=== PATIENT | male | born 1960 | race African-American/Black ===

== ENCOUNTER 2020-03-09 16:24 | Emergency (ER) | payer OTHER ==
[~2020-03-09] VITALS: Ht 180.3 cm; Wt 75.0 kg
[~2020-03-09 16:24] MED LIST: AMOXIL500 M1 OR; COGENTIN1 MG OR; DOXYCYC MONO100 M1 OR; HYDROCHLOROT12.5 MG OR; LORTAB5 PO; NAPROSYN500 MG PO; SEROQUEL25 MG OR; TOPROL XL25 MG OR; VENTOLIN HFA IN
[2020-03-09 17:42] LABS: HEMATOCRIT 35.4 % (39.0-50.0); HEMOGLOBIN 11.7 g/dl (14.0-18.0); IMMATURE GRANULOCYTES 0.4 % (0.0-5.0); MEAN CELL VOLUME 96.2 fL CALC (80.0-100.0); MEAN CORPUSCULAR HGB 31.8 pG CALC (26.0-32.0); MEAN CORPUSCULAR HGB CONC 33.1 g/dL CAL (32.0-36.0); NEUT# 3.16 thou/uL (1.82-7.42); RED BLOOD COUNT 3.68 mill/uL (4.70-6.10); RED CELL DISTRI WIDTH 13.5 % (11.5-15.5)
[2020-03-09 18:14] LABS: ALBUMIN 3.7 g/dL (3.2-5.0); ALKALINE PHOSPHATASE 89 u/l (38-126); ANION GAP 7 (6-22 (CALC)); BILIRUBIN, TOTAL 0.6 mg/dL (0.0-1.4); BUN 8 mg/dL (8-23); BUN/CREATININE RATIO 11 (12-20 (CALC)); CARBON DIOXIDE 35 mmol/l (22-30); CHLORIDE 86 mmol/l (95-108); CREATININE 0.7 mg/dL (0.7-1.3); GFR > 60 ML/MIN (>=60 (CALC)); GFR FOR AFR.AMER. > 60 ML/MIN (>=60 (CALC)); POTASSIUM 3.6 mmol/l (3.5-5.1); SGOT/AST 59 u/l (19-48); SODIUM 124 mmol/l (137-146)
[2020-03-09 18:39] LABS: URINE BILIRUBIN - DIPSTICK NEGATIVE (NEGATIVE); URINE BLOOD DIPSTICK NEGATIVE (NEGATIVE); URINE COLOR YELLOW; URINE GLUCOSE - DIPSTICK NEGATIVE (NEGATIVE); URINE KETONE NEGATIVE (NEGATIVE); URINE LEUK ESTERASE NEGATIVE (NEGATIVE); URINE NITRITE - DIPSTICK NEGATIVE (Negative); URINE PROTEIN - DIPSTICK NEGATIVE (NEG-TRACE); URINE SPECIFIC GRAVITY 1.025
[2020-03-09] MEDS ORDERED: AZITHROMYCIN500 MG PO (19:21)
[2020-03-09] MEDS ORDERED: KEFLEX500 M1 PO (19:21)
[2020-03-09] MEDS ORDERED: PREDNISONE20 MG PO (19:25)
[2020-03-09 19:36] VITALS: BP 134/82
--- NOTE | 2020-03-11 07:42 | NUR ---
RESULTS CALLED TO , PRELIMINARY BLOOD CULTURE SHOWS 3/4 VIALS GROWING GRAM (+) COCCI. PT LEFT AMA. HIS PHONE NUMBER ON FILE IS A FRIENDS PHONE, THE FRIEND REPORTS HIS NIMBER IS [phone] OR [phone]. LEFT MESSAGE ON [phone].
== END 2020-03-09 19:31 | disposition left against medical advice (07) ==
LOC: ED 16:24
DX: J44.1 Chronic obstructive pulmonary disease with (acute) exacerbation (principal); E87.1 Hypo-osmolality and hyponatremia; E87.2 Acidosis; F14.10 Cocaine abuse, uncomplicated; I10 Essential (primary) hypertension; F17.210 Nicotine dependence, cigarettes, uncomplicated; Z91.19 Patient's noncompliance with other medical treatment and regimen; Z20.828 Contact with and (suspected) exposure to other viral communicable diseases

== ENCOUNTER 2020-05-28 08:44 | Emergency (ER) | payer OTHER ==
[~2020-05-28] VITALS: Ht 180.3 cm; Wt 75.0 kg
[~2020-05-28 08:44] MED LIST changes: +AZITHROMYCIN500 MG PO; +KEFLEX500 M1 PO; +PREDNISONE20 MG PO
[2020-05-28 09:17] LABS: IMMATURE GRANULOCYTES 0.4 % (0.0-5.0); MEAN CORPUSCULAR HGB 31.1 pG CALC (26.0-32.0); MEAN CORPUSCULAR HGB CONC 32.1 g/dL CAL (32.0-36.0); NEUT# 6.19 thou/uL (1.82-7.42); RED BLOOD COUNT 4.66 mill/uL (4.70-6.10)
[2020-05-28 09:18] LABS: HEMATOCRIT 45.2 % (39.0-50.0); HEMOGLOBIN 14.5 g/dl (14.0-18.0)
[2020-05-28 09:20] LABS: ALBUMIN 4.4 g/dL (3.2-5.0); BILIRUBIN, TOTAL 0.6 mg/dL (0.0-1.4); BUN 5 mg/dL (8-23); BUN/CREATININE RATIO 6 (12-20 (CALC)); C-REACTIVE PROTEIN 1.1 mg/dL (0-0.9); CARBON DIOXIDE 31 mmol/l (22-30); CHLORIDE 84 mmol/l (95-108); CREATININE 0.9 mg/dL (0.7-1.3); GFR > 60 ML/MIN (>=60 (CALC)); GFR FOR AFR.AMER. > 60 ML/MIN (>=60 (CALC)); LIPASE < 10 u/l (23-300); SGOT/AST 62 u/l (19-48); SODIUM 125 mmol/l (137-146); TOTAL PROTEIN 7.7 g/dL (6.3-8.2)
[2020-05-28 09:24] LABS: ALKALINE PHOSPHATASE 142 u/l (38-126); ANION GAP 14 (6-22 (CALC)); POTASSIUM 4.4 mmol/l (3.5-5.1)
[2020-05-28 09:49] LABS: ACT PARTIAL THROMBO TIME 26.5 SECONDS (20.0-32.5)
[2020-05-28 13:43] LABS: URINE BILIRUBIN - DIPSTICK NEGATIVE (NEGATIVE); URINE BLOOD DIPSTICK NEGATIVE (NEGATIVE); URINE COLOR YELLOW; URINE GLUCOSE - DIPSTICK NEGATIVE (NEGATIVE); URINE KETONE NEGATIVE (NEGATIVE); URINE LEUK ESTERASE NEGATIVE (NEGATIVE); URINE NITRITE - DIPSTICK NEGATIVE (Negative); URINE PROTEIN - DIPSTICK NEGATIVE (NEG-TRACE); URINE UROBILINOGEN - DIPSTICK 0.2 E.U./dL (0.2)
[2020-05-28 14:00] VITALS: BP 167/101
== END 2020-05-28 14:00 | disposition short-term general hospital (02) ==
LOC: ED 08:44
PROVIDERS: Family Medicine
DX: I21.4 Non-ST elevation (NSTEMI) myocardial infarction (principal); J44.1 Chronic obstructive pulmonary disease with (acute) exacerbation; I11.0 Hypertensive heart disease with heart failure; I50.9 Heart failure, unspecified; F17.200 Nicotine dependence, unspecified, uncomplicated; I25.2 Old myocardial infarction; Z20.822 Contact with and (suspected) exposure to COVID-19
CPT/HCPCS: J1644; Q9967

== ENCOUNTER 2020-06-08 15:15 | Inpatient (IN) | payer OTHER ==
[2020-06-08] VITALS (12 sets, daily range): BP systolic 83–176; BP diastolic 54–93
[~2020-06-08] VITALS: Ht 180.3 cm; Wt 70.0 kg
--- NOTE | 2020-06-08 15:15 | NUR ---
PATIENT ARRIVED IN SEVERE RESPIRATORY DISTRESS BREATHING AT 48 RESPIRATIONS PER MINUTE. MD AT BEDSIDE FOR EVAL RESPIRATORY THERAPY AND PHARMACY CALLED TO BEDSIDE FOR ASSISTANCE. MD VERBAL ORDERS RECIEVED PATIENT BEING PREPARED FOR INTUBATION.
[2020-06-08 15:58] LABS: GFR > 60 ML/MIN (>=60 (CALC)); GFR FOR AFR.AMER. > 60 ML/MIN (>=60 (CALC))
--- NOTE | 2020-06-08 16:00 | NUR ---
Reassessment of patient completed. No distress noted. ON VENT SEDATED
[2020-06-08 16:04] LABS: IMMATURE GRANULOCYTES 0.6 % (0.0-5.0); MEAN CELL VOLUME 97.9 fL CALC (80.0-100.0); MEAN CORPUSCULAR HGB 30.5 pG CALC (26.0-32.0); MEAN CORPUSCULAR HGB CONC 31.1 g/dL CAL (32.0-36.0); NEUT# 2.33 thou/uL (1.82-7.42); RED BLOOD COUNT 3.87 mill/uL (4.70-6.10); RED CELL DISTRI WIDTH 12.7 % (11.5-15.5)
[2020-06-08 16:07] LABS: HEMATOCRIT 37.9 % (39.0-50.0); HEMOGLOBIN 11.8 g/dl (14.0-18.0)
[2020-06-08 16:10] LABS: INTERNATIONAL NORMALIZED RATIO 1.1 RATIO (0.7-1.3)
[2020-06-08 16:11] LABS: ALBUMIN 4.5 g/dL (3.2-5.0); ALKALINE PHOSPHATASE 92 u/l (38-126); ANION GAP 12 (6-22 (CALC)); BILIRUBIN, TOTAL 0.4 mg/dL (0.0-1.4); BUN 14 mg/dL (8-23); BUN/CREATININE RATIO 14 (12-20 (CALC)); CARBON DIOXIDE 31 mmol/l (22-30); CHLORIDE 85 mmol/l (95-108); GFR > 60 ML/MIN (>=60 (CALC)); GFR FOR AFR.AMER. > 60 ML/MIN (>=60 (CALC)); POTASSIUM 4.8 mmol/l (3.5-5.1); SGOT/AST 41 u/l (19-48); SODIUM 124 mmol/l (137-146)
[2020-06-08 16:22] LABS: MYOGLOBIN 61 ng/mL (0 - 121)
--- NOTE | 2020-06-08 17:36 | NUR ---
Reassessment of patient completed. No distress noted.
--- NOTE | 2020-06-08 18:12 | NUR ---
Reassessment of patient completed. No distress noted.ON VENT SEDATED
[2020-06-08 18:13] LABS: URINE BILIRUBIN - DIPSTICK NEGATIVE (NEGATIVE); URINE BLOOD DIPSTICK NEGATIVE (NEGATIVE); URINE COLOR YELLOW; URINE GLUCOSE - DIPSTICK NEGATIVE (NEGATIVE); URINE KETONE NEGATIVE (NEGATIVE); URINE LEUK ESTERASE NEGATIVE (NEGATIVE); URINE NITRITE - DIPSTICK NEGATIVE (Negative); URINE PROTEIN - DIPSTICK 100 mg/dL (NEG-TRACE); URINE SPECIFIC GRAVITY >=1.030; URINE UROBILINOGEN - DIPSTICK 0.2 E.U./dL (0.2)
[2020-06-08 18:18] LABS: URINE RBC 0-2 RBC/hpf (0-5); URINE WBC 0-2 WBC/hpf (0-5)
--- NOTE | 2020-06-08 19:40 | NUR ---
Reassessment of patient completed. No distress noted.ON VENT SEDATED
--- NOTE | 2020-06-08 20:05 | NUR ---
REPORT GIVEN TO ICU FACE TO FACE
--- NOTE | 2020-06-08 20:25 | NUR ---
Reassessment of patient completed. No distress noted.SEDATED ON VENT
--- NOTE | 2020-06-08 21:00 | NUR ---
RECEIVED FROM ER VIA STRETCHER INTO ICU 1. TRANSPORTED BY DROP MAN AND RT. PATIENT ORALLY INTUABTED BEING BAGGED DURING TRANSPORT. TRANSFERRED TO BED WITH 4 PERSON ASSIST. PLACED ON VENT BY RT-TV 470, A/C 20, FIO2 40%, PEEP 6. O2 SAT 90'S. PATIENT SOMEWHAT RESTLESS ON ARRIVAL AND AFTER TRANSFER FROM STRETCHER TO BED. RECEIVED PATIENT ON PROPOFOL AT 40 MCG/KG/MIN INCREASED TO 45 MCG/KG/MIN FOR RESTLESSNESS. WILL CONTINUE TO MONITOR CLOSELY.
--- NOTE | 2020-06-08 21:15 | NUR ---
STILL SOMEWHAT RESTLESS. PROPOFOL INCREASED TO 50 MCG/KG/MIN.
--- NOTE | 2020-06-08 21:30 | NUR ---
PATIENT RESTING QUIETLY AT THIS TIME. BREATH SOUNDS DIMINISHED THROUGHOUT LUNG KELLEY. SUX ORALLY FOR LARGE AMOUNT OF THICK CLEAR SECRETIONS. OG TUBE IN PLACE DRAINING SMALL AMOUNT UNDIGESTED FOOD TO PALE GREEN. ABD SOFT WITH BOWEL SOUNDS HEARD. ANDERSON DRAINS CLEAR YELLOW URINE, DIURESING WELL FROM LASIX GIVEN IN ER. 3-4+ PITTING EDEMA OF BLE. PERIPHERAL PULSES INATCT.SALINE LOCK IN PLACE IN RH AND LAC, BOTH SITES BENIGN. RIGHT FEMORAL TLC IN PLACE WITH NS STARTED AT 100 ML/HR AND PROPOFOL AT 50 MCG/KG/MIN WITH ADEQUATE SEDATION. CARDIA MONITOR SHOWS SR. BLOOD DRAWN FROM TLC FOR TROPONIN LEVEL- FLUSHED PRE AND POST BLOOD DRAW PER PROTOCOL.
--- NOTE | 2020-06-08 22:09 | NUR ---
LAB PHONED WITH TROPONIN RESULTS OF .229.
--- NOTE | 2020-06-08 22:10 | NUR ---
PATIENT DAUGHTER NAHUN PHONED IN FOR CONDITION UPDATE AND LEFT HER CONTACT NUMBERS.
--- NOTE | 2020-06-08 22:30 | NUR ---
INFORMED DR RANKIN OF ELEVATED TROPONIN RESULTS. NEW ORDERS RECEIVED.
--- NOTE | 2020-06-08 23:00 | NUR ---
PROPOFOL CURRENTLY AT 30 MCG/KG/MIN. PATIENT CALM AND RESTFUL. VSS. SR ON MONITOR.
[2020-06-09] VITALS (15 sets, daily range): BP systolic 96–120; BP diastolic 65–81
--- NOTE | 2020-06-09 | NUR ---
VSS. VENT SETTINGS UNCHANGED FROM EARLIER. O2 SAT 99% SR ON MONITOR.
--- NOTE | 2020-06-09 02:00 | NUR ---
VSS. SEDATED ON PROPOFOL AT 30 MCG/KG/MIN. SR ON MONITOR.
--- NOTE | 2020-06-09 04:00 | NUR ---
VSS. CALM AND RESTFUL. SR ON MONITOR.
--- NOTE | 2020-06-09 04:30 | NUR ---
BATHED AND PARTIAL LINEN CHANGE DONE. PATIENT RESTLESS AT TIMES DURING BATHING AND REPOSITIONING. CALMS TO VERBAL CUES. VSS. SR ON MONITOR.
--- NOTE | 2020-06-09 05:15 | NUR ---
ABGS DRAWN PER RT.
[2020-06-09 05:42] LABS: HEMATOCRIT 32.6 % (39.0-50.0); HEMOGLOBIN 10.6 g/dl (14.0-18.0); IMMATURE GRANULOCYTES 0.6 % (0.0-5.0); MEAN CELL VOLUME 96.4 fL CALC (80.0-100.0); MEAN CORPUSCULAR HGB 31.4 pG CALC (26.0-32.0); MEAN CORPUSCULAR HGB CONC 32.5 g/dL CAL (32.0-36.0); NEUT# 3.23 thou/uL (1.82-7.42); RED BLOOD COUNT 3.38 mill/uL (4.70-6.10); RED CELL DISTRI WIDTH 12.7 % (11.5-15.5)
[2020-06-09 05:59] LABS: ALKALINE PHOSPHATASE 86 u/l (38-126); BILIRUBIN, TOTAL 0.3 mg/dL (0.0-1.4); BUN 16 mg/dL (8-23); BUN/CREATININE RATIO 17 (12-20 (CALC)); CARBON DIOXIDE 32 mmol/l (22-30); CHLORIDE 87 mmol/l (95-108); GFR > 60 ML/MIN (>=60 (CALC)); GFR FOR AFR.AMER. > 60 ML/MIN (>=60 (CALC)); SGOT/AST 34 u/l (19-48); SODIUM 124 mmol/l (137-146)
--- NOTE | 2020-06-09 06:15 | NUR ---
ELEVATED TROPONIN RESULTS OF 1.43 CALLED FROM LAB.
[2020-06-09 06:17] LABS: ALBUMIN 3.5 g/dL (3.2-5.0); ANION GAP 10 (6-22 (CALC)); POTASSIUM 5.4 mmol/l (3.5-5.1); TOTAL PROTEIN 6.3 g/dL (6.3-8.2)
--- NOTE | 2020-06-09 09:00 | NUR ---
PT SEEN INTUBATED, SEDATED, RESTRAINED, STILL ABLE TO MOVE AROUND AND RESPOND TO PRESENCE OF OTHERS. PT STABLE ON VENT, NO INDICATION OF PAIN. PT SEEN BY DR PERALES THIS MORNING, WILL TRANSFER PT TO [facility] PER ELEVATED TROPONIN, NON-STEMI ABD RESPIRATORY FAILURE.
--- NOTE | 2020-06-09 12:00 | NUR ---
PT IS ABLE TO ACKNOWLEDGE WITH HIS HANDS UNDERSTANDING OF NECESSARY TRANSFER TO [facility]. FAMILY HAS CALLED AND WAS UPDATED.
--- NOTE | 2020-06-09 13:27 | NUR ---
PT TO GO TO 5-B BED 1 AT [facility]. [facility] HERE AT 1400. PT REMAINS INTUBATED AND SEDATED.
--- NOTE | 2020-06-09 14:30 | NUR ---
REPORT HAS BEEN CALLED TO GUY ZELAYA AT [facility], PT LEAVES WITH [facility] TRANSPORT AT THIS TIME. HEPARIN REMAINS AT 850 UNITS HOURLY AND DIPRIVAN IS AT 55 MCG/KG/MIN. VENT SETTINGS BEFORE. ANDERSON AND BLUE IN PLACE.
--- NOTE | 2020-06-11 09:36 | NUR ---
Final blood culture results showing S. epidermis in 1 of 4 tubes, likely contaminant, sent to [facility] at [phone] to [place].
== END 2020-06-09 14:45 | disposition short-term general hospital (02) | DRG 208 ==
LOC: ED 15:15 → EDBD 15:15 → ED 15:15 → EDBD 16:58 → ED 16:58 → ED-I 16:58 → ED 17:34 → ICU 17:35
PROVIDERS: Family Medicine; ADMIT Internal Medicine; ATTEND Internal Medicine
PROC: 0BH17EZ Insertion of Endotracheal Airway into Trachea, Via Natural or Artificial Opening (ICD-10-PCS; principal; 2020-06-08)
PROC: 5A1935Z Respiratory Ventilation, Less than 24 Consecutive Hours (ICD-10-PCS; 2020-06-08)
PROC: 0T9B70Z Drainage of Bladder with Drainage Device, Via Natural or Artificial Opening (ICD-10-PCS; 2020-06-08)
PROC: 06HY33Z Insertion of Infusion Device into Lower Vein, Percutaneous Approach (ICD-10-PCS; 2020-06-08)
DX: J96.02 Acute respiratory failure with hypercapnia (principal); I21.4 Non-ST elevation (NSTEMI) myocardial infarction; I21.A1 Myocardial infarction type 2; J44.1 Chronic obstructive pulmonary disease with (acute) exacerbation; J96.01 Acute respiratory failure with hypoxia; I11.0 Hypertensive heart disease with heart failure; I50.9 Heart failure, unspecified; I25.10 Atherosclerotic heart disease of native coronary artery without angina pectoris; J10.1 Influenza due to other identified influenza virus with other respiratory manifestations; Z86.16 Personal history of COVID-19; Z20.822 Contact with and (suspected) exposure to COVID-19
CPT/HCPCS: J1644; J1650; Q9967; S0164

== ENCOUNTER 2020-06-22 12:13 | Emergency (ER) | payer OTHER ==
[~2020-06-22] VITALS: Ht 180.3 cm; Wt 75.0 kg
[2020-06-22 13:38] LABS: URINE BILIRUBIN - DIPSTICK NEGATIVE (NEGATIVE); URINE BLOOD DIPSTICK NEGATIVE (NEGATIVE); URINE COLOR YELLOW; URINE GLUCOSE - DIPSTICK NEGATIVE (NEGATIVE); URINE KETONE NEGATIVE (NEGATIVE); URINE LEUK ESTERASE NEGATIVE (NEGATIVE); URINE NITRITE - DIPSTICK NEGATIVE (Negative); URINE PROTEIN - DIPSTICK NEGATIVE (NEG-TRACE); URINE SPECIFIC GRAVITY 1.015; URINE UROBILINOGEN - DIPSTICK 0.2 E.U./dL (0.2)
[2020-06-22 13:49] LABS: HEMATOCRIT 27.8 % (39.0-50.0); HEMOGLOBIN 8.8 g/dl (14.0-18.0); IMMATURE GRANULOCYTES 0.7 % (0.0-5.0); MEAN CELL VOLUME 96.5 fL CALC (80.0-100.0); MEAN CORPUSCULAR HGB 30.6 pG CALC (26.0-32.0); MEAN CORPUSCULAR HGB CONC 31.7 g/dL CAL (32.0-36.0); NEUT# 8.38 thou/uL (1.82-7.42); RED BLOOD COUNT 2.88 mill/uL (4.70-6.10); RED CELL DISTRI WIDTH 12.6 % (11.5-15.5)
[2020-06-22 14:00] LABS: INTERNATIONAL NORMALIZED RATIO 1.1 RATIO (0.7-1.3); PROTHROMBIN TIME 10.5 SECONDS (9.0-12.5)
[2020-06-22 14:05] LABS: ALKALINE PHOSPHATASE 74 u/l (38-126); ANION GAP 13 (6-22 (CALC)); BUN 16 mg/dL (8-23); BUN/CREATININE RATIO 17 (12-20 (CALC)); CARBON DIOXIDE 29 mmol/l (22-30); CHLORIDE 87 mmol/l (95-108); CREATININE 0.9 mg/dL (0.7-1.3); GFR > 60 ML/MIN (>=60 (CALC)); GFR FOR AFR.AMER. > 60 ML/MIN (>=60 (CALC)); LIPASE < 10 u/l (23-300); POTASSIUM 4.8 mmol/l (3.5-5.1); SGOT/AST 30 u/l (19-48); SODIUM 124 mmol/l (137-146); TOTAL PROTEIN 7.2 g/dL (6.3-8.2)
[2020-06-22 14:06] LABS: BILIRUBIN, TOTAL 0.5 mg/dL (0.0-1.4)
[2020-06-22 18:35] VITALS: BP 161/94
== END 2020-06-22 14:30 | disposition short-term general hospital (02) ==
LOC: ED 12:13
PROVIDERS: Family Medicine
DX: I21.4 Non-ST elevation (NSTEMI) myocardial infarction (principal); J44.1 Chronic obstructive pulmonary disease with (acute) exacerbation; I11.0 Hypertensive heart disease with heart failure; I50.9 Heart failure, unspecified; R06.03 Acute respiratory distress; F17.200 Nicotine dependence, unspecified, uncomplicated; I25.2 Old myocardial infarction; Z86.16 Personal history of COVID-19; Z20.822 Contact with and (suspected) exposure to COVID-19
CPT/HCPCS: J1644

== ENCOUNTER 2020-06-29 00:09 | Emergency (ER) | payer OTHER ==
[~2020-06-29] VITALS: Ht 180.3 cm; Wt 75.0 kg
[~2020-06-29 00:09] MED LIST changes: +AMIODARONE200 MG PO
[2020-06-29 00:49] LABS: HEMOGLOBIN 10.7 g/dl (14.0-18.0); IMMATURE GRANULOCYTES 1.1 % (0.0-5.0); MEAN CELL VOLUME 97.2 fL CALC (80.0-100.0); MEAN CORPUSCULAR HGB 30.5 pG CALC (26.0-32.0); MEAN CORPUSCULAR HGB CONC 31.4 g/dL CAL (32.0-36.0); NEUT# 7.92 thou/uL (1.82-7.42); RED BLOOD COUNT 3.51 mill/uL (4.70-6.10); RED CELL DISTRI WIDTH 13.3 % (11.5-15.5)
[2020-06-29 00:59] LABS: HEMATOCRIT 34.1 % (39.0-50.0)
[2020-06-29 01:15] LABS: ACT PARTIAL THROMBO TIME 24.7 SECONDS (20.0-32.5); INTERNATIONAL NORMALIZED RATIO 1.1 RATIO (0.7-1.3)
[2020-06-29 01:29] LABS: ALBUMIN 4.1 g/dL (3.2-5.0); ALKALINE PHOSPHATASE 93 u/l (38-126); ANION GAP 13 (6-22 (CALC)); BILIRUBIN, TOTAL 0.5 mg/dL (0.0-1.4); BUN 17 mg/dL (8-23); BUN/CREATININE RATIO 17 (12-20 (CALC)); CARBON DIOXIDE 31 mmol/l (22-30); CHLORIDE 90 mmol/l (95-108); GFR > 60 ML/MIN (>=60 (CALC)); GFR FOR AFR.AMER. > 60 ML/MIN (>=60 (CALC)); LIPASE < 10 u/l (23-300); POTASSIUM 4.9 mmol/l (3.5-5.1); SGOT/AST 29 u/l (19-48); SODIUM 128 mmol/l (137-146); TOTAL PROTEIN 7.5 g/dL (6.3-8.2)
[2020-06-29 01:54] LABS: URINE BILIRUBIN - DIPSTICK NEGATIVE (NEGATIVE); URINE BLOOD DIPSTICK NEGATIVE (NEGATIVE); URINE COLOR YELLOW; URINE GLUCOSE - DIPSTICK NEGATIVE (NEGATIVE); URINE KETONE NEGATIVE (NEGATIVE); URINE LEUK ESTERASE NEGATIVE (NEGATIVE); URINE NITRITE - DIPSTICK NEGATIVE (Negative); URINE PROTEIN - DIPSTICK NEGATIVE (NEG-TRACE); URINE SPECIFIC GRAVITY 1.015; URINE UROBILINOGEN - DIPSTICK 0.2 E.U./dL (0.2)
[2020-06-29 03:00] VITALS: BP 139/75
[2020-06-29] MEDS ORDERED: TOPROL XL100 MG PO (13:49)
[2020-06-29] MEDS ORDERED: PERCOCET 5/325M1 TAB PO (13:51)
[2020-06-29] MEDS ORDERED: BUMETANIDE1 MG PO (14:12)
[2020-06-29] MEDS ORDERED: NEURONTIN600 MG PO (14:15)
[2020-06-29] MEDS ORDERED: ZESTRIL5 M1 PO (14:17)
[2020-06-29] MEDS ORDERED: POT CHLORIDE10 ME5 PO (14:19)
[2020-06-29] MEDS ORDERED: DULERA1 AE1 IN (14:20)
[2020-06-29] MEDS ORDERED: LOSARTAN POTAS100 MG PO (14:24)
== END 2020-06-29 03:00 | disposition short-term general hospital (02) ==
LOC: ED 00:09
DX: I22.2 Subsequent non-ST elevation (NSTEMI) myocardial infarction (principal); I21.4 Non-ST elevation (NSTEMI) myocardial infarction; J96.00 Acute respiratory failure, unspecified whether with hypoxia or hypercapnia; I16.1 Hypertensive emergency; I11.0 Hypertensive heart disease with heart failure; I50.9 Heart failure, unspecified; F20.9 Schizophrenia, unspecified; F17.200 Nicotine dependence, unspecified, uncomplicated; Z86.16 Personal history of COVID-19; Z95.1 Presence of aortocoronary bypass graft; Z91.19 Patient's noncompliance with other medical treatment and regimen
CPT/HCPCS: J2060

== ENCOUNTER 2020-12-18 23:49 | Observation (INO) | payer OTHER ==
[~2020-12-18] VITALS: Ht 180.3 cm; Wt 87.0 kg
[~2020-12-18 23:49] MED LIST changes: +BUMETANIDE1 MG PO; +DULERA1 AE1 IN; +LOSARTAN POTAS100 MG PO; +NEURONTIN600 MG PO; +PERCOCET 5/325M1 TAB PO; +POT CHLORIDE10 ME5 PO; +TOPROL XL100 MG PO; +ZESTRIL5 M1 PO
[2020-12-19 01:02] LABS: HEMATOCRIT 34.9 % (39.0-50.0); HEMOGLOBIN 11.3 g/dl (14.0-18.0); IMMATURE GRANULOCYTES 0.2 % (0.0-5.0); MEAN CORPUSCULAR HGB CONC 32.4 g/dL CAL (32.0-36.0); NEUT# 4.07 thou/uL (1.82-7.42); RED BLOOD COUNT 4.04 mill/uL (4.70-6.10); RED CELL DISTRI WIDTH 16.2 % (11.5-15.5)
[2020-12-19 01:06] LABS: MEAN CELL VOLUME 86.4 fL CALC (80.0-100.0)
[2020-12-19 01:31] LABS: ALBUMIN 3.3 g/dL (3.2-5.0); ALKALINE PHOSPHATASE 73 u/l (38-126); BILIRUBIN, TOTAL 0.3 mg/dL (0.0-1.4); BUN 9 mg/dL (8-23); BUN/CREATININE RATIO 14 (12-20 (CALC)); CARBON DIOXIDE 32 mmol/l (22-30); CHLORIDE 84 mmol/l (95-108); CREATININE 0.7 mg/dL (0.7-1.3); GFR > 60 ML/MIN (>=60 (CALC)); GFR FOR AFR.AMER. > 60 ML/MIN (>=60 (CALC)); SGOT/AST 41 u/l (19-48); TOTAL PROTEIN 6.2 g/dL (6.3-8.2)
[2020-12-19 01:33] LABS: ANION GAP 9 (6-22 (CALC)); POTASSIUM 3.7 mmol/l (3.5-5.1); SODIUM 121 mmol/l (137-146)
[2020-12-19 02:46] LABS: URINE BILIRUBIN - DIPSTICK NEGATIVE (NEGATIVE); URINE BLOOD DIPSTICK NEGATIVE (NEGATIVE); URINE COLOR YELLOW; URINE GLUCOSE - DIPSTICK NEGATIVE (NEGATIVE); URINE KETONE NEGATIVE (NEGATIVE); URINE LEUK ESTERASE NEGATIVE (NEGATIVE); URINE PROTEIN - DIPSTICK NEGATIVE (NEG-TRACE); URINE UROBILINOGEN - DIPSTICK 0.2 E.U./dL (0.2)
[2020-12-19 02:47] LABS: URINE NITRITE - DIPSTICK NEGATIVE (Negative)
[2020-12-19 11:17] LABS: HEMATOCRIT 39.6 % (39.0-50.0); HEMOGLOBIN 12.6 g/dl (14.0-18.0); IMMATURE GRANULOCYTES 0.3 % (0.0-5.0); MEAN CORPUSCULAR HGB 27.7 pG CALC (26.0-32.0); MEAN CORPUSCULAR HGB CONC 31.8 g/dL CAL (32.0-36.0); NEUT# 6.17 thou/uL (1.82-7.42); RED BLOOD COUNT 4.55 mill/uL (4.70-6.10); RED CELL DISTRI WIDTH 16.4 % (11.5-15.5)
[2020-12-19 11:21] LABS: ALBUMIN 3.9 g/dL (3.2-5.0); ALKALINE PHOSPHATASE 83 u/l (38-126); ANION GAP 14 (6-22 (CALC)); BUN 9 mg/dL (8-23); BUN/CREATININE RATIO 15 (12-20 (CALC)); CARBON DIOXIDE 30 mmol/l (22-30); CHLORIDE 86 mmol/l (95-108); CREATININE 0.6 mg/dL (0.7-1.3); GFR > 60 ML/MIN (>=60 (CALC)); GFR FOR AFR.AMER. > 60 ML/MIN (>=60 (CALC)); POTASSIUM 4.2 mmol/l (3.5-5.1); SGOT/AST 46 u/l (19-48); SODIUM 126 mmol/l (137-146); TOTAL PROTEIN 7.2 g/dL (6.3-8.2)
[2020-12-19 11:23] LABS: BILIRUBIN, TOTAL 0.6 mg/dL (0.0-1.4)
[2020-12-20 06:19] LABS: HEMATOCRIT 35.9 % (39.0-50.0); HEMOGLOBIN 11.2 g/dl (14.0-18.0); IMMATURE GRANULOCYTES 0.2 % (0.0-5.0); MEAN CELL VOLUME 88.2 fL CALC (80.0-100.0); MEAN CORPUSCULAR HGB 27.5 pG CALC (26.0-32.0); MEAN CORPUSCULAR HGB CONC 31.2 g/dL CAL (32.0-36.0); NEUT# 2.87 thou/uL (1.82-7.42); RED BLOOD COUNT 4.07 mill/uL (4.70-6.10); RED CELL DISTRI WIDTH 16.6 % (11.5-15.5)
[2020-12-20 06:27] LABS: ALBUMIN 3.7 g/dL (3.2-5.0); ALKALINE PHOSPHATASE 74 u/l (38-126); ANION GAP 9 (6-22 (CALC)); BUN 14 mg/dL (8-23); BUN/CREATININE RATIO 20 (12-20 (CALC)); CARBON DIOXIDE 33 mmol/l (22-30); CHLORIDE 89 mmol/l (95-108); CREATININE 0.7 mg/dL (0.7-1.3); GFR > 60 ML/MIN (>=60 (CALC)); GFR FOR AFR.AMER. > 60 ML/MIN (>=60 (CALC)); POTASSIUM 4.3 mmol/l (3.5-5.1); SGOT/AST 45 u/l (19-48); SODIUM 127 mmol/l (137-146)
[2020-12-20 06:54] LABS: BILIRUBIN, TOTAL 0.3 mg/dL (0.0-1.4)
[2020-12-20 09:49] VITALS: BP 156/85
[2020-12-20] MEDS ORDERED: TOPROL XL100 MG PO (10:57)
[2020-12-20] MEDS ORDERED: BUMETANIDE1 MG PO (10:57)
[2020-12-20] MEDS ORDERED: POTASSIUM CHLO10 MEQ PO (10:58)
[2020-12-20] MEDS ORDERED: ADVAIR DISK1 INH (11:00)
[2020-12-20] MEDS ORDERED: LOSARTAN POTAS100 MG PO (11:03)
== END 2020-12-20 12:03 | disposition home or self-care (01) | DRG 313 ==
LOC: ED 23:49 → ED-I 12-19 04:11 → ED 12-19 05:07 → ED-I 12-19 05:08
PROVIDERS: Emergency Medicine; ADMIT Hospitalist; ATTEND Hospitalist
DX: R07.9 Chest pain, unspecified (principal); M25.512 Pain in left shoulder; J44.1 Chronic obstructive pulmonary disease with (acute) exacerbation; E87.1 Hypo-osmolality and hyponatremia; I16.1 Hypertensive emergency; I11.0 Hypertensive heart disease with heart failure; I50.9 Heart failure, unspecified; G62.9 Polyneuropathy, unspecified; I25.2 Old myocardial infarction; Z95.1 Presence of aortocoronary bypass graft; Z87.891 Personal history of nicotine dependence; Z20.822 Contact with and (suspected) exposure to COVID-19
CPT/HCPCS: J1650; Q9967